=== PATIENT | female | born 1990 | race Caucasian/White ===

== ENCOUNTER 2017-06-08 17:40 | Inpatient (IN) | payer OTHER ==
[~2017-06-08] VITALS: Ht 149.9 cm; Wt 55.3 kg
[~2017-06-08 17:40] MED LIST: PREN1TAB47 PO
[2017-06-08] MEDS ORDERED: Lactated Ringer's 1,000 ML IV PRN (17:56)
[2017-06-08] MEDS ORDERED: Carboprost 250 mCg/mL Inj IM PRN ×2 (18:00→19:05)
[2017-06-08] MEDS ORDERED: Oxytocin 30 Units/500 mL LR 30 UNITS in IV Premix 1 EACH IV PRN ×2 (18:00→19:05)
[2017-06-08] MEDS ORDERED: fentaNYL-PF 50 mCg/mL 2 mL Inj IVPUSH PRN (18:00)
[2017-06-08] MEDS ORDERED: Ondansetron 2 mg/mL 2 mL Inj IVPUSH PRN (18:00)
[2017-06-08] MEDS ORDERED: Hemorrhage Kit, Post Partum XX ONE ×2 (18:00→19:05)
[2017-06-08] MEDS ORDERED: Methylergonovine 0.2 mg/mL Inj IM PRN ×2 (18:00→19:05)
[2017-06-08] MEDS ORDERED: Sodium Chloride LOK Flush 10 mL Syringe IVFLUSH PRN (18:00)
[2017-06-08] MEDS ORDERED: Oxytocin 10 Unit/mL Inj IM PRN ×2 (18:00→19:05)
[2017-06-08] MEDS ORDERED: Lactated Ringer's 1,000 ML IV SCH (19:03)
[2017-06-08] MEDS ORDERED: Witch Hazel-Glycerin Pads TOPICAL PRN (19:05)
[2017-06-08] MEDS ORDERED: Benzocaine (Dermoplast) 20% 60 Gm Spray TOPICAL PRN (19:05)
[2017-06-08] MEDS ORDERED: LANOlin HPA 7 Gm Ointment TOPICAL PRN (19:05)
--- NOTE | 2017-06-08 20:26 | PCM.OBVAG ---
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 She progressed rapidly after presentation to the [facility] and delivered via uncomplicated over an intact perineum. Blood Loss & Administration Estimated Blood Loss: 300 Post Procedure Plan Post delivery Condition: Mom stable, Baby stable to nursery copies to: Kingsley Correa MD, Erik R MD Jun 08, 2017 20:26
[2017-06-09 07:00] LABS: Mean Corpuscular Hemoglobin 30.6 pg (27.0-35.0); Mean Corpuscular Volume 89.7 fL (81-100)
--- NOTE | 2017-06-09 13:10 | PCM.PNOBPP ---
Subjective Date of Service Jun 09, 2017 Post : Spontaneous Vaginal Delivery Visit History day #1 Subjective Patient without complaints. Lochia: Light Pain Management: No or Minimal Pain Gastrointestinal: Good Appetite, No N/V Postop Activity: Ambulating Independently Labs Laboratory Tests 06/08/17 19:07: Hold Purple Top Tube Received 06/09/17 06:39: White Blood Count 16.2, Red Blood Count 4.35, Hemoglobin 13.3, Hematocrit 39.0, Mean Corpuscular Volume 89.7, Mean Corpuscular Hemoglobin 30.6, Mean Corpuscular Hemoglobin Concent 34.1, Red Cell Distribution Width 14.0, Platelet Count 157 Exam Vital Signs Vital Signs: VS reviewed, stable Exam Abdomen: Uterus is (U-1), Fundus firm, Abdomen soft, Abdomen non-tender, Abdomen non-distended Perineum: Intact : Voiding without difficulty Extremities: No cords, No tenderness/swelling Lungs: Clear to Auscultation, Normal Air Movement Heart: Normal S1, Normal S2, No Murmurs/Rubs/Gallops General: Alert, Oriented X3, Cooperative, No Acute Distress OB Post Assessment/Plan Assessment day #1 -- doing well Problems: (1) with 38 completed weeks gestation Status: Acute ICD Code: Z3A.38 (2) Spontaneous vaginal delivery Status: Acute ICD Code: O80 (3) normal course Status: Acute ICD Code: Z39.2 Pain Evaluation: Adequate Pain Control Post plan: Anticipate discharge home today Chuck Shanks MD Jun 09, 2017 13:10
--- NOTE | 2017-06-09 13:13 | PCM.DC.OB ---
Obstetrical Discharge Summary Date of Service Jun 09, 2017 Date of hospital admission Jun 08, 2017 at 17:54 Date of Discharge: Jun 09, 2017 Providers Admitting Physician: Chuck Shanks MD Primary Care Physician: Kingsley Correa MD Attending Physician: Chuck Shanks MD Problems: (1) with 38 completed weeks gestation Status: Acute ICD Code: Z3A.38 (2) Spontaneous vaginal delivery Status: Acute ICD Code: O80 (3) normal course Status: Acute ICD Code: Z39.2 Brief History and Physical: Patient is a 26 year-old presenting a 38 6/7 weeks EGA in active phase labor. Hospital Course: She progressed rapidly after presentation to the [facility] and delivered via uncomplicated over an intact perineum. She had a normal course. Vit/Fe Fumarate/Fa-Expunged Drug, Do (-Expunged Drug, Do Not Renew!) 1 Tab Tablet 1 PO DAILY (Reported) Disposition Home Follow-up plan 6 weeks Discharge Diet: No restrictions Discharge Activity-General: Pelvic Rest for 6 weeks copies to: Kingsley Correa MD, Erik R MD Jun 09, 2017 13:13
--- NOTE | 2017-06-09 13:15 | PCM.DIOB ---
Obstetrical Disch Instruction Date of Service: Jun 09, 2017 Dates of Hospitalization Date of Hospital Admission Jun 08, 2017 at 17:54 Providers Admitting Physician: Chuck Shanks MD Primary Care Physician: Kingsley Correa MD Attending Physician: Chuck Shanks MD Discharge Diagnosis Problems: (1) with 38 completed weeks gestation Status: Resolved ICD Code: Z3A.38 (2) Spontaneous vaginal delivery Status: Resolved ICD Code: O80 (3) normal course Status: Resolved ICD Code: Z39.2 Diet Discharge Diet: No restrictions Activity Discharge Activity-General: Pelvic Rest for 6 weeks Dressing and Incisional Care Hygiene: May shower Follow Up Plan Follow-up Provider (F9): Kingsley Correa MD Follow-up appointment: Weeks (6) Call your provider for: Fever or Chills, Shortness of breath, Heavy vaginal bleeding, Epigastric pain, Excessive constipation, Vaginal discomfort, Red painful breasts Chuck Shanks MD Jun 09, 2017 13:15
[2017-06-09 15:13] VITALS: BP 113/68; PULSE 77; RESP 18
== END 2017-06-09 15:20 | disposition home or self-care (01) | DRG 775 ==
LOC: FBCO 17:40 → FBC 17:54
PROVIDERS: ADMIT Family Medicine; ATTEND Family Medicine
PROC: 10E0XZZ Delivery of Products of Conception, External Approach (ICD-10-PCS; principal; 2017-06-08)
DX: O62.3 Precipitate labor (principal); Z37.0 Single live birth; Z3A.38 38 weeks gestation of pregnancy